=== PATIENT | female | born 1965 | race Caucasian/White ===

== ENCOUNTER 2020-04-08 06:14 | Day surgery (SDC) | payer MEDICARE, OTHER ==
[~2020-04-08] VITALS: Ht 165.1 cm; Wt 81.8 kg
[~2020-04-08 06:14] MED LIST: ALBU8.5H8 INH; ESOM20CA PO; ESTR0.45 PO; FENO145T32 PO; FLUO20TA25 PO; GEMF600T8 PO; HYDR-3246 PO; HYDR25TA6 PO; METO50TA82 PO; POTA20TA6 PO; TRAZ150T62 PO; TYLENOL ARTHRITIS PO; VITAMIN B1 PO
[2020-04-08 07:05] VITALS: BP 130/73
[2020-04-08] MEDS ORDERED: VIT1TABL34 PO (07:13)
[2020-04-08] MEDS ORDERED: METO50TA4 PO (07:13)
[2020-04-08] MEDS ORDERED: LIDOCAINE 2%, 20ML ONE (07:19)
[2020-04-08] MEDS ORDERED: FENTANYL PF 100 MCG/2ML ONE (07:19)
[2020-04-08] MEDS ORDERED: MIDAZOLAM 1 MG/ML, 5ML ONE (07:19)
[2020-04-08 07:30] LABS: BASOPHILS % (AUTO) 1 % (0-1); EOSINOPHILS % (AUTO) 0 % (1-7); LYMPHOCYTES % (AUTO) 9 % (22-44); MEAN CORPUSCULAR HGB CONC 32.7 g/dL (32.4-35.8); MONOCYTES % (AUTO) 7 % (2-9); NEUTROPHILS % (AUTO) 83 % (42-75); PLATELET COUNT 452 x10^3/uL (130-400); RED BLOOD COUNT 4.09 x10^6/uL (3.82-5.3); RED CELL DISTRIBUTION WIDTH 17.4 % (9.6-15.2)
[2020-04-08 07:51] LABS: MD SCAN
[2020-04-08 08:47] LABS: INTERNATIONAL NORMALIZED RATIO 1.17 (0.93-1.1); PROTHROMBIN TIME 12.4 Seconds (9.6-11.5)
[2020-04-08 10:41] LABS: ALANINE AMINOTRANSFERASE 14 U/L (12-78); ALKALINE PHOSPHATASE 58 U/L (45-117); ANION GAP 11 mmol/L (5-15); BILIRUBIN,TOTAL 0.6 mg/dL (0.2-1.0); CALCIUM 9.5 mg/dL (8.5-10.1); CHLORIDE 87 mmol/L (98-107); CREATININE 1.09 mg/dL (0.55-1.02); TOTAL PROTEIN 7.6 g/dL (6.4-8.2)
[2020-04-08 10:42] LABS: ALBUMIN 3.8 g/dL (3.4-5.0); CHOL/HDL RATIO 10.5; CHOLESTEROL, TOTAL 262 mg/dL (140-239); HDL CHOL % 10 % (28-40); HDL CHOLESTEROL (DIRECT) 25 mg/dL (40-60); TRIGLYCERIDES 720 mg/dL (50-200)
== END 2020-04-08 13:28 | disposition home or self-care (01) ==
LOC: CACL 06:14
PROVIDERS: ATTEND Internal Medicine Cardiovascular Disease
DX: R94.31 Abnormal electrocardiogram [ECG] [EKG] (principal); I20.8 Other forms of angina pectoris; I10 Essential (primary) hypertension; E78.5 Hyperlipidemia, unspecified; J45.909 Unspecified asthma, uncomplicated; F12.10 Cannabis abuse, uncomplicated; E66.3 Overweight; Z68.29 Body mass index [BMI] 29.0-29.9, adult; Z79.82 Long term (current) use of aspirin; Z79.899 Other long term (current) drug therapy; Z88.5 Allergy status to narcotic agent; Z88.8 Allergy status to other drugs, medicaments and biological substances; Z91.040 Latex allergy status; Z96.651 Presence of right artificial knee joint; Z98.84 Bariatric surgery status; Z98.890 Other specified postprocedural states
CPT/HCPCS: 36415; 80053; 80061; 85025; 85610; 85730; 93458; 99156; 99157; C1760; C1769; C1894; J2250; J3010; Q9967

== ENCOUNTER → 2020-04-29 | Outpatient (CLI) | payer MEDICARE, OTHER ==
[~2020-04-29] MED LIST changes: +METO50TA4 PO; +VIT1TABL34 PO
== END | disposition home or self-care (01) ==
LOC: CVU 15:05
PROVIDERS: ATTEND Internal Medicine Cardiovascular Disease
DX: Z01.810 Encounter for preprocedural cardiovascular examination (principal); R94.31 Abnormal electrocardiogram [ECG] [EKG]; I34.8 Other nonrheumatic mitral valve disorders; E78.5 Hyperlipidemia, unspecified; I10 Essential (primary) hypertension; Z87.891 Personal history of nicotine dependence
CPT/HCPCS: 93306